=== PATIENT | female | born 1990 | race Caucasian/White ===

== ENCOUNTER 2016-06-09 15:10 | Emergency (ER) | payer OTHER, MEDICAID ==
[2016-06-09 15:17] VITALS: BP 151/107; PULSE 84; RESP 18; TEMP 99.1; O2SAT 98
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
== END 2016-06-09 17:15 | disposition home or self-care (01) ==
LOC: C.ER 15:10
DX: S16.1XXA Strain of muscle, fascia and tendon at neck level, initial encounter (principal); V43.52XA Car driver injured in collision with other type car in traffic accident, initial encounter; Y92.410 Unspecified street and highway as the place of occurrence of the external cause